=== PATIENT | male | born 1940 | race Caucasian/White ===

== ENCOUNTER → 2017-02-28 | Outpatient (CLI) | payer MEDICARE, BC ==
[~2017-02-28] MED LIST: LISINOPRIL20 MG PO; METOPROLOL SR25 MG PO; TRAMADOL50 MG PO; ZYLOPRIM300 MG PO
[2017-02-28 08:12] LABS: BUN 12 mg/dl (7-24); EST GLOM FILT AFRICAN AMERICAN > 60 ml/min
== END | disposition home or self-care (01) ==
LOC: LAB 07:07
PROVIDERS: Internal Medicine Hematology & Oncology
DX: Z51.11 Encounter for antineoplastic chemotherapy (principal); Z23 Encounter for immunization; C77.0 Secondary and unspecified malignant neoplasm of lymph nodes of head, face and neck; C49.0 Malignant neoplasm of connective and soft tissue of head, face and neck; C79.00 Secondary malignant neoplasm of unspecified kidney and renal pelvis; D61.89 Other specified aplastic anemias and other bone marrow failure syndromes

== ENCOUNTER → 2017-03-05 | Outpatient (CLI) | payer MEDICARE, BC | END | disposition home or self-care (01) | LOC: CT 03:25 | DX: Z51.11 Encounter for antineoplastic chemotherapy (principal); Z23 Encounter for immunization; C77.0 Secondary and unspecified malignant neoplasm of lymph nodes of head, face and neck; C49.0 Malignant neoplasm of connective and soft tissue of head, face and neck; D70.2 Other drug-induced agranulocytosis; D61.89 Other specified aplastic anemias and other bone marrow failure syndromes; I25.10 Atherosclerotic heart disease of native coronary artery without angina pectoris; I70.8 Atherosclerosis of other arteries ==

== ENCOUNTER → 2017-10-01 | Outpatient (CLI) | payer MEDICARE, BC ==
[2017-10-01 11:29] LABS: HEMOGLOBIN 14.2 g/dl (14.0-18.0); MEAN CELL VOLUME 97.5 fl (80.0-94.0); MEAN CORPUSCULAR HGB 32.2 pg (27.0-31.0); MEAN PLATELET VOLUME 10.6 fl (9.6-12.3); PLATELET COUNT AUTOMATED 157 10*3/uL (130-400); RED BLOOD COUNT 4.41 10*6/uL (4.50-5.90); RED CELL DISTRI WIDTH 14.3 % (0-14.5); WHITE BLOOD COUNT 2.9 10*3/uL (4.8-10.8)
[2017-10-01 11:42] LABS: BUN 11 mg/dl (7-24); CHLORIDE 103 mmol/L (98-107); CREATININE 1.01 mg/dL (0.70-1.30); POTASSIUM 3.4 mmol/L (3.5-5.1); SODIUM 141 mmol/L (136-145)
[2017-10-01 11:58] LABS: ATYPICAL LYMPHS 3 % (0-0); PLATELET SUFFICIENCY NORMAL (NORMAL); TOTAL CELLS COUNTED 100 #CELLS
== END | disposition home or self-care (01) ==
LOC: LAB 10:46
PROVIDERS: Internal Medicine
DX: J15.3 Pneumonia due to streptococcus, group B (principal)

== ENCOUNTER → 2017-10-03 | Outpatient (CLI) | payer MEDICARE, BC ==
[2017-10-03 07:44] LABS: HEMATOCRIT 42.4 % (42.0-52.0); MEAN CELL VOLUME 96.1 fl (80.0-94.0); MEAN CORPUSCULAR HGB 31.7 pg (27.0-31.0); MEAN PLATELET VOLUME 10.4 fl (9.6-12.3); PLATELET COUNT AUTOMATED 197 10*3/uL (130-400); RED BLOOD COUNT 4.41 10*6/uL (4.50-5.90); RED CELL DISTRI WIDTH 13.9 % (0-14.5); WHITE BLOOD COUNT 3.4 10*3/uL (4.8-10.8)
[2017-10-03 08:26] LABS: TOTAL CELLS COUNTED 100 #CELLS
[2017-10-03 08:30] LABS: PLATELET SUFFICIENCY NORMAL (NORMAL)
== END | disposition home or self-care (01) ==
LOC: LAB 07:14
PROVIDERS: Internal Medicine
DX: C77.0 Secondary and unspecified malignant neoplasm of lymph nodes of head, face and neck (principal)

== ENCOUNTER 2018-02-12 08:10 | Emergency (ER) | payer MEDICARE, BC ==
[~2018-02-12] VITALS: Ht 167.6 cm; Wt 68.0 kg
[2018-02-12 09:03] LABS: BASO % 0.7 % (0.0-1.0); EOS # 0.2 10*3/uL (0.0-0.4); EOS % 4.3 % (1.0-4.0); HEMATOCRIT 42.6 % (42.0-52.0); LYMPH # 1.2 10*3/uL (1.3-4.4); LYMPH % 21.7 % (27.0-41.0); MEAN CELL VOLUME 97.7 fl (80.0-94.0); MEAN CORPUSCULAR HGB 32.1 pg (27.0-31.0); MEAN CORPUSCULAR HGB CONC 32.9 g/dl (33.0-37.0); MEAN PLATELET VOLUME 10.2 fl (9.6-12.3); MONO # 0.6 10*3/uL (0.1-1.0); MONO % 10.2 % (3.0-9.0); NEUT # 3.5 10*3/uL (2.3-7.9); NEUT % 62.9 % (47.0-73.0); PLATELET COUNT AUTOMATED 212 10*3/uL (130-400); RED BLOOD COUNT 4.36 10*6/uL (4.50-5.90); RED CELL DISTRI WIDTH 13.8 % (0-14.5); WHITE BLOOD COUNT 5.6 10*3/uL (4.8-10.8)
[2018-02-12 09:07] LABS: BILIRUBIN NEGATIVE (NEGATIVE); BLOOD 2+ (NEGATIVE); CLARITY SL CLOUDY (CLEAR); COLOR YELLOW (YELLOW); GLUCOSE NEGATIVE (NEGATIVE); KETONE NEGATIVE (NEGATIVE); LEUKO ESTERASE TRACE (NEGATIVE); NITRITE NEGATIVE (NEGATIVE); PH 5.5 (5.0-9.0); SPECIFIC GRAVITY 1.025 (1.005-1.030); UROBILINOGEN 0.2 E.U./dl (0.2-1.0)
[2018-02-12 09:16] LABS: ACT PARTIAL THROMBO TIME 23.5 SECONDS (20.8-31.5); INTERNATIONAL NORM RATIO 0.9 (2.0-3.5)
[2018-02-12 09:19] LABS: ALBUMIN 3.3 gm/dl (3.1-4.5); ALKALINE PHOSPHATASE 67 U/L (45-117); BUN 9 mg/dl (7-24); CHLORIDE 105 mmol/L (98-107); CREATININE 0.97 mg/dL (0.70-1.30); POTASSIUM 3.9 mmol/L (3.5-5.1); SGOT/AST 29 IU/L (3-35); SGPT/ALT 23 U/L (12-78); SODIUM 139 mmol/L (136-145); TOTAL PROTEIN 7.1 gm/dL (6.4-8.2)
[2018-02-12 09:20] LABS: BACTERIA 1+; RBC 31-40 rbc/hpf (0-2); WBC 16-20 wbc/hpf (0-5)
[2018-02-12] MEDS ORDERED: Nizoral 2%15 GM T (10:55)
== END 2018-02-12 11:03 | disposition home or self-care (01) ==
LOC: ED 08:10
PROVIDERS: Emergency Medicine
DX: N47.6 Balanoposthitis (principal); Z79.899 Other long term (current) drug therapy

== ENCOUNTER 2018-07-06 20:31 | Emergency (ER) | payer OTHER ==
[~2018-07-06] VITALS: Ht 170.1 cm; Wt 68.0 kg
--- NOTE | ~2018-07-06 | EKG ---
[place], [place] ELECTROCARDIOGRAM REPORT NAME: ANH TOBIN UNIT #: [id number] ROOM: DOCTOR: EPIPHANY DRAFT REPORT BIRTHDATE: [birth year] [facility] Test Date: 2018-07-06 Test Time: 21:21:20 Pat Name: ANH TOBIN Department: Room: Gender: Disease Intervention Specialist: JUNG : [id number] Requested By: RAMONE CLARKE Order Number: [id number] Reading MD: Angelito Lara MD Measurements Intervals [place] Rate: 85 P: 37 MD: 186 QRS: -18 QRSD: 93 T: 50 QT: 382 QTc: 455 Interpretive Statements Sinus rhythm Borderline left axis deviation Anteroseptal infarct, old Baseline wander in lead(s) V4 Electronically Signed On 07-07-2018 7:50:44 PST by Angelito Lara MD CM:EKGRPT:ELECTROCARDIOGRAM REPORT 20 0750 RAMONE DORSEY DRAFT REPORT RAMONE CLARKE DO
[~2018-07-06 20:31] MED LIST changes: +Nizoral 2%15 GM T
[2018-07-06 21:24] LABS: BASO % 0.3 % (0.0-1.0); EOS # 0.2 10*3/uL (0.0-0.4); EOS % 2.4 % (1.0-4.0); HEMATOCRIT 41.3 % (42.0-52.0); HEMOGLOBIN 13.6 g/dl (14.0-18.0); LYMPH # 1.7 10*3/uL (1.3-4.4); LYMPH % 25.3 % (27.0-41.0); MEAN CELL VOLUME 98.1 fl (80.0-94.0); MEAN CORPUSCULAR HGB 32.3 pg (27.0-31.0); MEAN CORPUSCULAR HGB CONC 32.9 g/dl (33.0-37.0); MEAN PLATELET VOLUME 9.5 fl (9.6-12.3); MONO # 0.6 10*3/uL (0.1-1.0); MONO % 9.2 % (3.0-9.0); NEUT # 4.2 10*3/uL (2.3-7.9); NEUT % 62.4 % (47.0-73.0); PLATELET COUNT AUTOMATED 251 10*3/uL (130-400); RED BLOOD COUNT 4.21 10*6/uL (4.50-5.90); RED CELL DISTRI WIDTH 14.5 % (0-14.5); WHITE BLOOD COUNT 6.8 10*3/uL (4.8-10.8)
[2018-07-06 21:34] LABS: INTERNATIONAL NORM RATIO 0.9 (2.0-3.5)
[2018-07-06 21:46] LABS: ALBUMIN 3.3 gm/dl (3.1-4.5); ALKALINE PHOSPHATASE 55 U/L (45-117); BUN 9 mg/dl (7-24); CHLORIDE 100 mmol/L (98-107); CREATININE 0.86 mg/dL (0.70-1.30); POTASSIUM 3.8 mmol/L (3.5-5.1); SGOT/AST 30 IU/L (3-35); SGPT/ALT 25 U/L (12-78); SODIUM 136 mmol/L (136-145); TOTAL PROTEIN 7.3 gm/dL (6.4-8.2)
[2018-07-06 22:26] LABS: BILIRUBIN NEGATIVE (NEGATIVE); BLOOD TRACE-LYSED (NEGATIVE); CLARITY CLEAR (CLEAR); COLOR YELLOW (YELLOW); GLUCOSE NEGATIVE (NEGATIVE); KETONE NEGATIVE (NEGATIVE); LEUKO ESTERASE NEGATIVE (NEGATIVE); NITRITE NEGATIVE (NEGATIVE); PH 5.5 (5.0-9.0); SPECIFIC GRAVITY <= 1.005 (1.005-1.030); UROBILINOGEN 0.2 E.U./dl (0.2-1.0)
[2018-07-06 22:33] LABS: RBC 0-2 rbc/hpf (0-2)
== END 2018-07-07 00:46 | disposition home or self-care (01) ==
LOC: ED 20:31
PROVIDERS: Emergency Medicine
DX: M62.81 Muscle weakness (generalized) (principal); Z79.899 Other long term (current) drug therapy

== ENCOUNTER → 2025-06-11 | Outpatient (CLI) | payer OTHER ==
[~2025-06-11] MED LIST changes: +IOHEXOL 300 MG/ML 100 ML VIAL IV ONE; +IOHEXOL 300 MG/ML 100 ML VIAL ONE; +VITAMIN D350 MC2 PO
== END | disposition home or self-care (01) ==
LOC: CT 12:57
PROVIDERS: ATTEND Physician Assistant
DX: K80.20 Calculus of gallbladder without cholecystitis without obstruction (principal); K56.41 Fecal impaction; N28.1 Cyst of kidney, acquired; I70.0 Atherosclerosis of aorta; R53.1 Weakness; R26.9 Unspecified abnormalities of gait and mobility; R63.0 Anorexia; R63.4 Abnormal weight loss; J84.10 Pulmonary fibrosis, unspecified; K76.9 Liver disease, unspecified